=== PATIENT | female | born 1955 | race Caucasian/White ===

== ENCOUNTER 2019-02-04 09:58 | Emergency (ER) | payer SELFPAY ==
[~2019-02-04] VITALS: Ht 154.9 cm; Wt 61.0 kg
[2019-02-04 10:36] LABS: BASOPHILS % 0.6 % (0.0-2.0); EOSINOPHILS % 3.1 % (0.0-5.0); HEMATOCRIT. 42.4 % (36.0-48.0); LYMPHOCYTES % 26.6 % (20.0-50.0); MEAN CORPUSCULAR HEMOGLOBIN 26.7 pg (28.0-32.0); MEAN CORPUSCULAR VOLUME 80.6 fL (81.0-99.0); MEAN PLATELET VOLUME 8.6 fl (7.4-10.4); MONOCYTES % 6.1 % (2.0-8.0); NEUTROPHILS % 63.6 % (40.0-76.0); PLATELET 243 x1000/uL (130-400); RED BLOOD CELL COUNT 5.26 mill/uL (4.2-5.4); RED CELL DISTRIBUTION WIDTH 14.1 % (11.6-14.6)
[2019-02-04 10:42] LABS: CHLORIDE 108 mEq/L (98-107)
[2019-02-04] MEDS ORDERED: SODIUM CHLORIDE 0.9% 1,000 ML IV ONE (11:30)
[2019-02-04] MEDS ORDERED: DIPHENHYDRAMINE 50MG/ML VIAL IV ONE (11:30)
[2019-02-04] MEDS ORDERED: KETOROLAC 15MG/ML VIAL IV ONE (11:30)
[2019-02-04] MEDS ORDERED: METOCLOPRAMIDE HCL 10MG/2ML VIAL IV ONE (11:30)
[2019-02-04 14:05] VITALS: BP 121/74
== END 2019-02-04 14:32 | disposition home or self-care (01) ==
LOC: EDBD 09:58 → ER 09:58
DX: R07.9 Chest pain, unspecified (principal); R51 Headache; R11.2 Nausea with vomiting, unspecified; R00.1 Bradycardia, unspecified; I10 Essential (primary) hypertension
CPT/HCPCS: 36415; 71045; 80053; 83880; 84484; 85025; 93005; 96361; 96374; 96375; 99284; J1200; J1885; J2765; J7030; Z7610

== ENCOUNTER 2025-10-19 16:50 | Emergency (ER) | payer OTHER, MEDICAID ==
[~2025-10-19] VITALS: Ht 160 cm; Wt 68.0 kg
[2025-10-19 16:57] VITALS: O2SAT 96
[2025-10-19 18:04] LABS: BASOPHILS % 0.7 % (0.0-2.0); EOSINOPHILS % 1.0 % (0.0-5.0); HEMATOCRIT. 33.8 % (36.0-48.0); HEMOGLOBIN. 11.2 g/dL (12.0-16.0); LYMPHOCYTES % 31.7 % (20.0-50.0); MEAN PLATELET VOLUME 8.3 fl (7.4-10.4); MONOCYTES % 9.1 % (2.0-8.0); NEUTROPHILS % 57.5 % (40.0-76.0); PLATELET 420 x1000/uL (130-400); RED BLOOD CELL COUNT 4.20 mill/uL (4.2-5.4); RED CELL DISTRIBUTION WIDTH 15.6 % (11.6-14.6)
[2025-10-19 18:21] LABS: CREATININE 1.2 mg/dL (0.6-1.0); UREA NITROGEN BLOOD 18.0 mg/dL (9-23)
[2025-10-19] MEDS: LIDOCAINE 5% PATCH TOP SCH (18:48)
[2025-10-19 18:49] VITALS: BP 133/72; PULSE 79; RESP 17; TEMP 37.2; O2SAT 98
[2025-10-19] MEDS: ACETAMINOPHEN 325MG TABLET PO ONE (18:49)
== END 2025-10-19 18:55 | disposition home or self-care (01) ==
LOC: ER 16:50
DX: R07.89 Other chest pain (principal); M25.561 Pain in right knee; M25.562 Pain in left knee; M79.10 Myalgia, unspecified site; I10 Essential (primary) hypertension; E11.9 Type 2 diabetes mellitus without complications; E78.00 Pure hypercholesterolemia, unspecified; Z88.6 Allergy status to analgesic agent; Z86.73 Personal history of transient ischemic attack (TIA), and cerebral infarction without residual deficits
CPT/HCPCS: 36415; 70486; 71250; 73560; 80048; 82550; 85025; 99284